=== PATIENT | male | born 1980 | race African-American/Black ===

== ENCOUNTER 2018-06-20 19:56 | Emergency (ER) | payer BC ==
[2018-06-20] MEDS ORDERED: Etomidate 2 MG/ML 20 ML SDV IVPUSH ONE (19:57)
[2018-06-20] MEDS ORDERED: Succinylcholine 200 MG/10 ML MDV IV ONE (19:57)
[2018-06-20] MEDS ORDERED: Rocuronium 100 MG/10 ML MDV IV ONE (19:57)
[2018-06-20] MEDS ORDERED: Sodium Chloride 0.9% 10 ML Syringe FLUSH PRN (20:08)
[2018-06-20] MEDS ORDERED: Sodium Chloride 0.9% 2.5 ML Syringe FLUSH PRN (20:08)
[2018-06-20] MEDS ORDERED: Diphtheria,Pertussis(Acell),Tetanus Vaccine 0.5 ML Syringe IM ONE (20:09)
[2018-06-20] MEDS ORDERED: Sodium Chloride 0.9% 1,000 ML IV ONE (20:09)
[2018-06-20] MEDS ORDERED: ceFAZolin 1 GM in Premix Bag 1 BAG IV SCH (20:15)
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
[2018-06-20 20:36] LABS: CHLORIDE,CL 104 mmol/L (98-107); SODIUM,NA 142 mmol/L (136-148)
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
[2018-06-20] MEDS ORDERED: Sodium Chloride 0.9% 1,000 ML IV SCH (21:30)
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
--- NOTE | 2018-06-22 18:54 | CR ---
EXAM DATE: 06/20/18 PATIENT'S AGE: 37 [facility] Facility: [place], [place] Site . Site : 1980 Study: XRay Spine Cervical [id number]/12/2019 8:38:11 PM Ordering Physician: Francy Toure Final Report: INDICATION: Trauma. TECHNIQUE: AP supine view of the cervical spine. COMPARISON: None. IMPRESSION: Endotracheal tube is noted with the tip of the tube approximately 6 cm above the karla. Cervical spine integrity and alignment cannot be adequately assessed on an AP view. Dictated by Derik Irvin MD @ 06/20/2018 9:06:03 PM Dictated by: Derik Irvin MD @ 06/20/2018 21:06:05 (Electronic Signature) Report Signed by Proxy. ROSALIO
--- NOTE | 2018-06-22 18:55 | CR ---
EXAM DATE: 06/20/18 PATIENT'S AGE: 37 Patient: JANE SINGH Facility: [facility], [place], [place] Site . Site : 1980 Study: XRay Pelvis [id number]/12/2019 8:38:38 PM Ordering Physician: Francy Toure Final Report: HISTORY: Fell from 4th floor. COMPARISON: None available. FINDINGS: A single AP view of the pelvis is obtained on the trauma backboard which results in some artifact. Today`s study is diagnostic. There is wide diastasis of the pubic symphysis with greater than 3.5 centimeters of separation. There are acute, transverse fractures of the right inferior pubic symphysis and the midbody of the right inferior pubic ramus with approximately 1 centimeter of inferior displacement of the inferior fracture fragment. There is an acute, moderately displaced fracture of the medial aspect of the right superior pubic ramus adjacent to the acetabulum, with approximately 1 centimeter of inferior displacement of the superior ramus fracture fragment. There is an acute vertical fracture of the right sacral body with approximately 2.5 centimeters of displacement. The hips are normal in appearance with no fracture or dislocation. 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 The inferior lumbar spine is normal in appearance. The soft tissues of the pelvis are unremarkable. IMPRESSION: WIDE DIASTASIS OF THE PUBIC SYMPHYSIS WITH APPROXIMATELY 3.5 CENTIMETERS OF SEPARATION. CANNOT EXCLUDE URETHRAL INJURY. MULTIPLE FRACTURES INVOLVING THE RIGHT PUBIC SYMPHYSIS AND THE SUPERIOR AND INFERIOR RIGHT PUBIC RAMI. VERTICAL FRACTURE OF THE RIGHT SACRAL BODY WITH APPROXIMATELY 2.5 CENTIMETERS OF DIASTASIS. Dictated by Shabbir Scott MD @ Jun 20 2018 9:04PM (Electronic Signature) Report Signed by Proxy. ROSALIO
--- NOTE | 2018-06-22 18:58 | CR ---
EXAM DATE: 06/20/18 PATIENT'S AGE: 37 [facility] Facility: [place], [place] Site . Site : 1980 Study: XRay Extremity Right wrist [id number]/12/2019 8:39:52 PM Ordering Physician: Francy Toure Final Report: INDICATION: Fall. TECHNIQUE: Single AP supine view of the right forearm. COMPARISON: None. IMPRESSION: There is a comminuted, impacted intra-articular fracture of the distal radius. Dictated by Derik Irvin MD @ 06/20/2018 9:08:08 PM Dictated by: Derik Irvin MD @ 06/20/2018 21:08:14 (Electronic Signature) Report Signed by Proxy. [facility]
--- NOTE | 2018-06-22 18:59 | CR ---
EXAM DATE: 06/20/18 PATIENT'S AGE: 37 Patient: JANE SINGH Facility: [place], [place] Site . Site : 1980 Study: XRay Chest [id number]/12/2019 8:40:14 PM Ordering Physician: Francy Toure Final Report: INDICATION: Fall. TECHNIQUE: Portable AP supine view of the chest. COMPARISON: None. IMPRESSION: Endotracheal tube is tip is approximately 6 cm above the karla. Cardiac, mediastinal and hilar contours are within normal limits. Low lung volumes. Normal pulmonary vasculature. Patchy airspace opacities in left perihilar region are noted, which are nonspecific. These could be related to a pulmonary contusion or potentially pneumonitis if there is any history of recent aspiration. No appreciable pleural fluid or pneumothorax on this supine study. Enteric tube is present with the tip in the body of the stomach. No acute bony abnormality is seen. Dictated by Derik Irvin MD @ 06/20/2018 9:10:48 PM Dictated by: Derik Irvin MD @ 06/20/2018 21:10:53 (Electronic Signature) Report Signed by Proxy. [facility]
--- NOTE | 2018-06-23 10:42 | CR ---
EXAM DATE: 06/20/18 PATIENT'S AGE: 37 [facility] Site . Site : 1980 Study: XRay-Extremity Right humerus [id number]/12/2019 8:39:13 PM Ordering Physician: Francy Toure Final Report: INDICATION: Fall. TECHNIQUE: Single AP supine view of the right humerus. COMPARISON: None. IMPRESSION: There is a mildly comminuted midshaft fracture of the right humerus, with lateral apex angulation. Large butterfly fragment is seen medially, measuring up to 8 cm in length. Signed by: Derik Irvin MD @06/20/2018 9:07:17 PM Signed by: Derik Irvin MD @06/23/2018 7:24:07 AM (Electronic Signature) Report Signed by Proxy. MTDTom
== END 2018-06-20 20:43 ==
LOC: MW.ED 19:56
DX: S42.351A Displaced comminuted fracture of shaft of humerus, right arm, initial encounter for closed fracture (principal); S52.501A Unspecified fracture of the lower end of right radius, initial encounter for closed fracture; S32.501A Unspecified fracture of right pubis, initial encounter for closed fracture; W17.89XA Other fall from one level to another, initial encounter
CPT/HCPCS: 36430; 43753; 51702; 71045; 72020; 72170; 73060; 73100; 80053; 80305; 81001; 83690; 85025; 85610; 86850; 86900; 86901; 86920; 86921; 86922; 90471; 93005; 96361; 96365; 96374; 96375; 99291; G0390; G0480; J0330; J3490; P9016; 31500; 99285